=== PATIENT | male | born 1970 | race Caucasian/White ===

== ENCOUNTER 2024-04-15 12:50 | Observation (INO) | payer OTHER ==
--- NOTE | 2024-04-15 13:07 | ED ---
General Adult HPI - General Chief complaint: Chest Pain Stated complaint: Chest pain Time Seen by Provider: 04/15/24 12:50 Source: patient, RN notes reviewed, old records reviewed Mode of arrival: EMS Limitations: no limitations - History of Present Illness Initial comments: This is a 53-year-old male who presents to the emergency department stating he is having some left shoulder pain and it radiates into his back. Patient states she has had this many times before. Patient states he spent 13 hours yesterday digging holes in today it was hurting with deep breath or twisting. Patient states as long as he does not do that he has no pain. Patient states that sharp in nature and only last as long as he is twisting or taking a deep breath. Patient states he went to [facility] to going to rehabilitation for alcohol abuse and they sentiment because he mentioned he had shoulder pain. Patient denies any diabetes patient states he has had slightly high cholesterol in the past and slightly high blood pressure in the past. Patient currently denies any symptoms. - Related Data Home Medications Medication Instructions Recorded Confirmed Multivitamins, Thera [Multivitamin 1 tab PO DAILY 04/15/24 04/15/24 (formulary)] Nugenix 1 tab PO BID 04/15/24 04/15/24 Allergies Allergy/AdvReac Type Severity Reaction Status Date / Time No Known Allergies Allergy Verified 04/15/24 14:35 Review of Systems ROS Statement: Those systems with pertinent positive or pertinent negative responses have been documented in the HPI. ROS Other: All systems not noted in ROS Statement are negative. Past Medical History Past Medical History: No Reported History History of Any Multi-Drug Resistant Organisms: None Reported Past Surgical History: Orthopedic Surgery Past Psychological History: No Psychological Hx Reported Smoking Status: Never smoker Past Alcohol Use History: Abuse, Daily, Heavy General Exam - General Exam Comments Initial Comments: GENERAL: Patient is well-developed and well-nourished. Patient is nontoxic and well- hydrated and is in no acute distress. ENT: Neck is soft and supple. No significant lymphadenopathy is noted. Oropharynx is clear. Moist mucous membranes. Neck has full range of motion without eliciting any pain. EYES: The sclera were anicteric and conjunctiva were pink and moist. Extraocular movements were intact and pupils were equal round and reactive to light. Eyelids were unremarkable. PULMONARY: Unlabored respirations. Good breath sounds bilaterally. No audible rales rhonchi or wheezing was noted. CARDIOVASCULAR: There is a regular rate and rhythm without any murmurs gallops or rubs. Left shoulder pain posteriorly is tender and reproducible ABDOMEN: Soft and nontender with normal bowel sounds. SKIN: Skin is clear with no lesions or rashes and otherwise unremarkable. NEUROLOGIC: Patient is alert and oriented x3. Cranial nerves II through XII are grossly intact. Motor and sensory are also intact. Normal speech, volume and content. Symmetrical smile. MUSCULOSKELETAL: Normal extremities with adequate strength and full range of motion. No lower extremity swelling or edema. No calf tenderness. LYMPHATICS: No significant lymphadenopathy is noted PSYCHIATRIC: Unable to assess Limitations: no limitations Course Vital Signs 04/15/24 04/15/24 12:55 14:05 Temperature 98.1 F Pulse Rate 89 Respiratory 16 Rate Blood Pressure 158/112 170/117 O2 Sat by Pulse 99 Oximetry Medical Decision Making - Medical Decision Making EKG is interpreted by myself but EKG shows sinus rhythm 89 bpm OH 125 QRS 103 QT interval 378 QTc is 425. Patient's EKG shows no ST segment elevation or depression. Was pt. sent in by a medical professional or institution (, PA, THREAD PULLING MACHINE ATTENDANT, urgent care, hospital, or [facility]...) When possible be specific @ -No Did you speak to anyone other than the patient for history (EMS, parent, family, police, friend...)? What history was obtained from this source @ -No Did you review nursing and triage notes (agree or disagree)? Why? @ -I reviewed and agree with nursing and triage notes Were old charts reviewed (outside hosp., previous admission, EMS record, old EKG, old radiological studies, urgent care reports/EKG's, m[facility] records)? Report findings @ -No old charts were reviewed Differential Diagnosis? @ -Differential Chest Pain: Stable Angina, Unstable Angina, STEMI, NSTEMI Aortic Dissection, Pneumothorax, Musculoskeletal, Esophageal Spasm GERD, Cholecystitis, Pancreatitis, Zoster, this is not meant to be an all-inclusive list. EKG interpreted by me (3pts min.). @ -As above X-rays interpreted by me (1pt min.). @ -Chest x-ray shows no acute CT interpreted by me (1pt min.). @ -None done U/S interpreted by me (1pt. min.). @ -None done What testing was considered but not performed or refused? (CT, X-rays, U/S, lab s)? Why? @ -None What meds were considered but not given or refused? Why? @ -None Did you discuss the management of the patient with other professionals (professionals i.e. , PA, THREAD PULLING MACHINE ATTENDANT, lab, RT, psych nurse, social media job titles, dressage judge, teacher, chief digital officer, medical case worker)? Give summary @ -I spoke with [facility] hospitalist and they agreed to admit the patient admit the patient I wrote admitting orders Was smoking cessation discussed for >3mins.? @ -No Was critical care preformed (if so, how long)? @ -No Were there social determinants of health that impacted care today? How? (Homelessness, low income, unemployed, alcoholism, drug addiction, transportation, low edu. Level, literacy, decrease access to med. care, usp, rehab)? @ -No Was there de-escalation of care discussed even if they declined (Discuss DNR or withdrawal of care, Hospice)? DNR status @ -No What co-morbidities impacted this encounter? (DM, HTN, Smoking, COPD, CAD, Cancer, CVA, ARF, Chemo, Hep., AIDS, mental health diagnosis, sleep apnea, morbid obesity)? @ -None Was patient admitted / discharged? Hospital course, mention meds given and route, prescriptions, significant lab abnormalities, going to OR and other pert inent info. @ -Patient's troponin was mildly elevated so patient will be kept in the emergency department and troponins will be repeated. Patient will also be put on a CIWA protocol if necessary though he is not having any withdrawal symptoms currently Undiagnosed new problem with uncertain prognosis? @ -No Drug Therapy requiring intensive monitoring for toxicity (Heparin, Nitro, Insulin, Cardizem)? @ -No Were any procedures done? @ -No Diagnosis/symptom? @ -Chest pain Acute, or Chronic, or Acute on Chronic? @ -Acute Uncomplicated (without systemic symptoms) or Complicated (systemic symptoms)? @ -Complicated Side effects of treatment? @ -No Exacerbation, Progression, or Severe Exacerbation? @ -No Poses a threat to life or bodily function? How? (Chest pain, USA, MT, pneumonia, PE, COPD, DKA, ARF, appy, cholecystitis, CVA, Diverticulitis, Homicidal, Suicidal, threat to staff... and all critical care pts) @ -Yes this could lead to an MT and endorgan dysfunction Diagnosis/symptom? @ -Alcohol abuse Acute, or Chronic, or Acute on Chronic? @ -Acute on chronic Uncomplicated (without systemic symptoms) or Complicated (systemic symptoms)? @ -Complicated Side effects of treatment? @ -None Exacerbation, Progression, or Severe Exacerbation] @ -No Poses a threat to life or bodily function? @ -No - Lab Data Result diagrams: 04/15/24 13:13 04/15/24 13:13 Lab Results 04/15/24 04/15/24 04/15/24 Range/Units 13:13 13:13 13:13 WBC 4.4 (3.8-10.6) k/uL RBC 4.34 (4.30-5.90) m/uL Hgb 13.4 (13.0-17.5) gm/dL Hct 40.2 (39.0-53.0) % MCV 92.6 (80.0-100.0) fL MCH 30.8 (25.0-35.0) pg MCHC 33.2 (31.0-37.0) g/dL RDW 12.8 (11.5-15.5) % Plt Count 139 L (150-450) k/uL MPV 7.6 Neutrophils % 71 % Lymphocytes % 16 % Monocytes % 9 % Eosinophils % 1 % Basophils % 0 % Neutrophils # 3.1 (1.3-7.7) k/uL Lymphocytes # 0.7 L (1.0-4.8) k/uL Monocytes # 0.4 (0-1.0) k/uL Eosinophils # 0.0 (0-0.7) k/uL Basophils # 0.0 (0-0.2) k/uL Sodium 136 L (137-145) mmol/L Potassium 3.8 (3.5-5.1) mmol/L Chloride 98 (98-107) mmol/L Carbon Dioxide 27 (22-30) mmol/L Anion Gap 11 mmol/L BUN 18 (9-20) mg/dL Creatinine 0.68 (0.66-1.25) mg/dL Est GFR (CKD-EPI)AfAm >90 (>60 ml/min/1.73 sqM) Est GFR (CKD-EPI)NonAf >90 (>60 ml/min/1.73 sqM) Glucose 141 H (74-99) mg/dL Calcium 9.7 (8.4-10.2) mg/dL Magnesium 1.8 (1.6-2.3) mg/dL Total Bilirubin 1.2 (0.2-1.3) mg/dL AST 199 H (17-59) U/L ALT 192 H (4-49) U/L Alkaline Phosphatase 82 (38-126) U/L Troponin I 0.037 H* (0.000-0.034) ng/mL Total Protein 7.8 (6.3-8.2) g/dL Albumin 4.9 (3.5-5.0) g/dL Disposition Clinical Impression: Chest pain, Alcohol abuse Disposition: ADMITTED IP TO THIS [facility] Referrals: None,Stated [Primary Care Provider] - 1-2 days Time of Disposition: 14:53
[2024-04-15] MEDS: KETOROLAC 15 MG/ML 1 ML VIAL IVP STA (13:24)
[2024-04-15 13:43] LABS: ALT 192 U/L (4-49); AST 199 U/L (17-59); African American GFR (CKD) >90 (>60 ml/min/1.73 sqM); Albumin 4.9 g/dL (3.5-5.0); Alkaline Phosphatase 82 U/L (38-126); Anion Gap 11 mmol/L; Blood Urea Nitrogen 18 mg/dL (9-20); Calcium 9.7 mg/dL (8.4-10.2); Carbon Dioxide 27 mmol/L (22-30); Chloride 98 mmol/L (98-107); Glucose 141 mg/dL (74-99); Magnesium 1.8 mg/dL (1.6-2.3); Non-African American GFR(CKD) >90 (>60 ml/min/1.73 sqM); Potassium 3.8 mmol/L (3.5-5.1); Sodium 136 mmol/L (137-145); Total Bilirubin 1.2 mg/dL (0.2-1.3); Total Protein 7.8 g/dL (6.3-8.2)
--- NOTE | 2024-04-15 13:56 | XR ---
EXAMINATION TYPE: XR chest 2V DATE OF EXAM: 04/15/2024 1:36 PM COMPARISON: Chest radiographs from CLINICAL INDICATION: Male, 53 years old with history of Difficulty breathing ; [facility] TECHNIQUE: XR chest 2V Frontal and lateral views of the chest. FINDINGS: Lungs/Pleura: There is flattening of the diaphragm with increased lucency of the lungs. No evidence o f pneumothorax, pleural effusion or focal consolidation. Pulmonary vascularity: Unremarkable. Heart/mediastinum: Cardiomediastinal silhouette is unremarkable. Musculoskeletal: No acute osseous pathology. Other findings: None IMPRESSION: No acute cardiopulmonary disease/process. [facility], , 04/15/2024 1:54 PM
[2024-04-15 13:58] LABS: Basophils % (A) 0 %; Eosinophils % (A) 1 %; HCT 40.2 % (39.0-53.0); HGB 13.4 gm/dL (13.0-17.5); Lymphocytes # (A) 0.7 k/uL (1.0-4.8); Lymphocytes % (A) 16 %; MCH 30.8 pg (25.0-35.0); MCHC 33.2 g/dL (31.0-37.0); MCV 92.6 fL (80.0-100.0); Mean Platelet Volume 7.6; Monocytes # (A) 0.4 k/uL (0-1.0); Monocytes % (A) 9 %; Neutrophils # (A) 3.1 k/uL (1.3-7.7); Neutrophils % (A) 71 %; Platelet Count 139 k/uL (150-450); RBC 4.34 m/uL (4.30-5.90); RDW 12.8 % (11.5-15.5); WBC 4.4 k/uL (3.8-10.6)
[2024-04-15] MEDS: hydrALAZINE HCL 20 MG/ML 1 ML VIAL IVP STA (14:33)
[2024-04-15] MEDS: ASPIRIN 81 MG PO STA (14:33)
[2024-04-15] MEDS: NITROGLYCERIN OINT 1 INCH/GM PACKET TOPICAL STA (14:33)
[2024-04-15] MEDS ORDERED: NITROGLYCERIN SL TABS 0.4 MG TAB SUBLINGUAL PRN (15:00)
[2024-04-15] MEDS ORDERED: LORazepam 1 MG TAB PO PRN ×3 (15:05)
[2024-04-15] MEDS ORDERED: LORazepam 0.5 MG TAB PO PRN (15:05)
[2024-04-15] MEDS: NITROGLYCERIN OINT 1 INCH/GM PACKET TOPICAL SCH (17:01)
[2024-04-16] MEDS: ASPIRIN 325 MG TAB PO SCH (08:37)
[2024-04-16 08:50] LABS: Chol/HDL Ratio 3.13 Ratio; LDL Cholesterol,Calculated 117.9 mg/dL (0.0-131.0)
--- NOTE | 2024-04-16 09:34 | US ---
EXAMINATION TYPE: US liver DATE OF EXAM: 04/16/2024 COMPARISON: NONE CLINICAL INDICATION: Male, 53 years old with history of Transaminitis; Elevated liver enzymes. TECHNIQUE: Grayscale and color Doppler imaging of the right upper quadrant was performed. FINDINGS: EXAM MEASUREMENTS: Liver Length: 17.3 cm Gallbladder Wall: .1 cm CBD: .4 cm Right Kidney: 10.6 x 4.2 x 4.2 cm MARKETER NOTES: Pancreas: Tail obscured by overlying bowel gas Liver: Increased attenuation no dilated ducts cysts or masses. Gallbladder: No stones seen Evidence for sonographic Bautista's sign: No CBD: wnl Right Kidney: No hydronephrosis or masses seen IMPRESSION: 1. No evidence for acute process. 2. Hepatic steatosis. [facility], , 04/16/2024 9:32 AM
[2024-04-16 09:59] LABS: ALT 182 U/L (4-49); AST 168 U/L (17-59); African American GFR (CKD) >90 (>60 ml/min/1.73 sqM); Albumin 4.7 g/dL (3.5-5.0); Alkaline Phosphatase 76 U/L (38-126); Amylase 34 U/L (30-110); Anion Gap 11 mmol/L; Blood Urea Nitrogen 14 mg/dL (9-20); Calcium 9.7 mg/dL (8.4-10.2); Carbon Dioxide 26 mmol/L (22-30); Chloride 99 mmol/L (98-107); Glucose 129 mg/dL (74-99); Lipase 142 U/L (23-300); Non-African American GFR(CKD) >90 (>60 ml/min/1.73 sqM); Sodium 136 mmol/L (137-145); Total Bilirubin 1.4 mg/dL (0.2-1.3); Total Protein 7.6 g/dL (6.3-8.2)
--- NOTE | 2024-04-16 10:14 | CT ---
EXAMINATION TYPE: CT cervical spine wo con DATE OF EXAM: 04/16/2024 COMPARISON: NONE CLINICAL INDICATION: Male, 53 years old with history of Numbness and tingling in Right UE, , pain TECHNIQUE: CT scan of the cervical spine is obtained without contrast, axial images are obtained, sa gittal and coronal reformatted images are also reviewed. CT DLP: 507 mGycm. Automated Exposure Control for Dose Reduction was Utilized. Contrast: , patient injected with mL of ., (none if empty) FINDINGS: Cervical spine is visualized in its entirety from C1 through upper thoracic levels, demonst rates levoconvex scoliosis centered in the upper thoracic spine. Prevertebral soft tissue appears wi thin normal limits. The C1-C2 articulation is within normal limits on the coronal images. Vertebral body heights and disc space heights are preserved. Review of axial images shows C2-C3 level to appear within normal limits. Axial images at C3-C4 level show left-sided foraminal bony projection causing asymmetric moderate to severe left-sided neural foraminal narrowing. Axial images at C4-C5 levels uncovertebral facet degenerative changes bilaterally and right paracentr al spur disc complex with asymmetric mild to moderate right-sided neural foraminal narrowing seen. Axial images at C5-C6 level show posterior spur disc complex more prominent to the right suspected mo derate to severe right-sided neural foraminal narrowing. This can be better evaluated or confirmed wi th MRI. Axial images at C6-C7 levels with posterior spur disc complex effacing the anterior thecal sac and ca using moderate bilateral neural foraminal narrowing. Axial images at C7-T1 level appear within normal limits. Thyroid gland is unremarkable. Lung apices show some mild parenchymal scarring without pneumothorax. IMPRESSION: There is no acute findings in the cervical spine. MRI noted more sensitive to evaluate f or suspected bilateral multilevel neural foraminal narrowing. [facility], , 04/16/2024 10:12 AM
[2024-04-16] MEDS ORDERED: DEXTROSE 50% SYRINGE 50 ML IVP PRN ×2 (10:44)
--- NOTE | 2024-04-16 10:46 | P.HPIM ---
History of Present Illness H&P Date: 04/16/24 Patient is a 53-year-old male with history of hypertension, alcohol dependence and osteoarthritis presented to the ER with complaint of left sided chest tightness that started yesterday at [facility]. Patient reports that he is currently undergoing detox rehab at [facility] since yesterday on 04/15/2024. He felt some bandlike pain and tightness in the left side of his chest yesterday radiating across. He reports that he has experienced similar pain in the past and which now happens almost on a monthly basis. Patient denies any history of CAD and has undergone EKG stress test 2 years ago which was normal. At the time interview, patient reports no chest pain or eva rtness of breath. Patient also reports that he has been under a lot of stress because of work and life. Patient has significant history of alcohol use. He has been drinking alcohol for more than 15 years on a regular basis between 3-6 shots of hard liquor every day. His last drink was on Monday evening on 04/14/2024. Patient denies tremors, nausea, vomiting, auditory, visual, tactile hallucination. He is also reporting chronic left shoulder pain with radiation to his left upper extremity. He has been experiencing tingling and numbness which has been getting progressively worse for more than a year. 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 Patient denies having any imaging done in the past. Reports no weakness. Patient denies any recent travel, hospitalization, history of blood clots. Initial laboratory evaluation show WBC 4.4, hemoglobin 13.4, MCV 92.6, platelet count 139, sodium 136, potassium 3.8, BUN 18, creatinine 0.68, glucose 141, AST 129, ALT 192, troponin one 0.037 (subsequently 0.031 and 0.034) Chest x-ray shows no acute cardiopulmonary disease or process. EKG shows normal sinus rhythm. With ventricular rate of 89 bpm, MT interval 125, QRS duration 103, QTc 425 ms. Poor R wave progression noted. Liver ultrasound is shows hepatic steatosis. CT of the cervical spine shows multilevel degenerative changes with bilateral multilevel neuroforaminal narrowing. Vital signs on arrival are temperature 98.1 F, pulse rate 89, respiratory 16, blood pressure 158/112, oxygen saturation 99% on room air Review of systems: Pertinent positives and negatives as discussed in HPI, a complete review of systems was performed and all other systems are negative. Social history: As above in HPI Physical examination: Vital signs reviewed General: non toxic, no distress, appears at stated age, overweight Derm: no unusual rashes/lesions, warm Head: atraumatic, normocephalic, symmetric Eyes: EOMI, no lid lag, anicteric sclera, pupils equal round reactive to light ENT: Nose and ears atraumatic Neck: No cervical lymphadenopathy, trachea midline, supple Mouth: no lip lesion, mucus membranes moist Cardiovascular: S1S2 reg, no murmur, positive dorsalis pedis pulse bilateral, no edema, left-sided chest tenderness upon palpation Lungs: CTA bilateral, no rhonchi, no rales, no accessory muscle use Abdominal: soft, nontender to palpation, no guarding Ext: muscle strength 5 out of 5 in all 4 extremities grossly, no gross muscle atrophy, no contractures, Neuro: CN II-XI grossly intact, no gross focal neuro deficits Psych: Alert, oriented, appropriate affect Assessment/Plan: This is a Patient is a 53-year-old male with history of hypertension, alcohol dependence and osteoarthritis presented to the ER with complaint of tightness left side of the chest. Case was discussed with the Emergency Room provider and decision was made to admit the patient for atypical chest pain, rule out ACS. Labs and images: Initial laboratory evaluation show WBC 4.4, hemoglobin 13.4, MCV 92.6, platelet count 139, sodium 136, potassium 3.8, BUN 18, creatinine 0.68, glucose 141, AST 129, ALT 192, troponin one 0.037 (subsequently 0.031 and 0.034) Chest x-ray shows no acute cardiopulmonary disease or process. EKG shows normal sinus rhythm. With ventricular rate of 89 bpm, MT interval 125, QRS duration 103, QTc 425 ms. Poor R wave progression noted. Liver ultrasound shows hepatic steatosis. CT of the cervical spine shows multilevel degenerative changes with bilateral multilevel neuroforaminal narrowing. Active problems: #Atypical chest pain, rule out ACS #Cardiomyopathy suspected in the setting of alcohol use disorder #Musculoskeletal pain Heart score is 2 points which indicate low risk with risk of MACE of 0.9 to 1.7% Oxygen therapy as needed Received aspirin 325 mg the ED Start aspirin 81 mg p.o. daily Nitroglycerin ointment topical 6 every hour and Nitrostat 0.4 mg sublingual every 5 minutes as needed Continue cardiac telemetry Consult cardiology; appreciate recs Echocardiogram and stress echo Order amylase and lipase to rule out pancreatitis Order lipid panel #Alcohol use disorder with impending withdrawal #Transaminitis Continue with [facility] protocol Order seizure precautions Order Librium 10 mg p.o. 3 times daily; consider uptitrating as needed Continue monitor for withdrawal symptoms Order liver ultrasound results discussed above Continue with detox rehab at [facility] after discharge Counseling provided on alcohol cessation Order UDS #Left upper extremity paresthesias Ordered CT of the cervical spine with results discussed above Outpatient follow-up with orthopedic and physical therapy #Hyperglycemia Accu-Cheks and sliding scale insulin Check HbA1c #Hypertension Start lisinopril 10 mg p.o. daily DVT prophylaxis: Lovenox 40 mg subcu daily GI prophylaxis: None F: None E: Replete as needed N: Heart healthy diet A: Patient ambulatory at baseline The patient is admitted with an anticipated less than than 2 midnight stay for evaluation of atypical chest pain, rule out ACS CODE STATUS: Full code Discussed with: Patient Anticipated discharge place: [facility] center Dictation was produced using [employer] dictation software. Please excuse any grammatical, word or spelling errors. Attestation I have seen and examined this patient with my resident , discussed the same with the resident/CHESTER, and agree with the dictator's assessment and plan as written GENERAL: The patient is alert and oriented x3, not in any acute distress. Well developed, well nourished. HEENT: Pupils are round and equally reacting to light. EOMI. No scleral icterus. No conjunctival pallor. Normocephalic, atraumatic. No pharyngeal erythema. No thyromegaly. CARDIOVASCULAR: S1 and S2 present. No murmurs, rubs, or gallops. PULMONARY: Chest is clear to auscultation, no wheezing or crackles. ABDOMEN: Soft, nontender, nondistended, normoactive bowel sounds. No palpable organomegaly. MUSCULOSKELETAL: No joint swelling or deformity. EXTREMITIES: No cyanosis, clubbing, or pedal edema. NEUROLOGICAL: Gross neurological examination did not reveal any focal deficits. SKIN: No rashes. Dr. Gerry finnegan Past Medical History Past Medical History: No Reported History History of Any Multi-Drug Resistant Organisms: None Reported Past Surgical History: Orthopedic Surgery Past Psychological History: No Psychological Hx Reported Smoking Status: Never smoker Past Alcohol Use History: Abuse, Daily, Heavy - Past Family History Mother Family Medical History: Diabetes Mellitus Sister(s) Family Medical History: Diabetes Mellitus Medications and Allergies Home Medications Medication Instructions Recorded Confirmed Type Multivitamins, Thera [Multivitamin 1 tab PO DAILY 04/15/24 04/15/24 History (formulary)] Nugenix 1 tab PO BID 04/15/24 04/15/24 History Allergies Allergy/AdvReac Type Severity Reaction Status Date / Time No Known Allergies Allergy Verified 04/15/24 14:35 Physical Exam Vitals: Vital Signs Temp Pulse Pulse Resp BP BP Pulse Ox 04/16/24 06:39 98.4 F 79 20 144/99 98 04/15/24 20:00 98.0 F 90 16 115/82 98 04/15/24 18:04 98 F 101 H 16 153/99 97 04/15/24 15:42 80 152/105 04/15/24 14:57 94 18 162/100 04/15/24 14:05 170/117 04/15/24 12:55 98.1 F 89 16 158/112 99 Results CBC & Chem 7: 04/15/24 13:13 04/17/24 06:04 Labs: Abnormal Lab Results - Last 24 Hours (Table) 04/15/24 04/15/24 04/15/24 Range/Units 13:13 13:13 13:13 Plt Count 139 L (150-450) k/uL Lymphocytes # 0.7 L (1.0-4.8) k/uL Sodium 136 L (137-145) mmol/L Glucose 141 H (74-99) mg/dL Total Bilirubin (0.2-1.3) mg/dL AST 199 H (17-59) U/L ALT 192 H (4-49) U/L Troponin I 0.037 H* (0.000-0.034) ng/mL HDL Cholesterol (40.00-60.00) mg/dL 04/15/24 04/16/24 Range/Units 13:13 09:22 Plt Count (150-450) k/uL Lymphocytes # (1.0-4.8) k/uL Sodium 136 L (137-145) mmol/L Glucose 129 H (74-99) mg/dL Total Bilirubin 1.4 H (0.2-1.3) mg/dL AST 168 H (17-59) U/L ALT 182 H (4-49) U/L Troponin I (0.000-0.034) ng/mL HDL Cholesterol 63.00 H (40.00-60.00) mg/dL
--- NOTE | 2024-04-16 11:02 | P.CRDCN ---
History of Present Illness Consult date: 04/16/24 Consult reason: chest pain History of present illness: This is a 53-year-old male with no previous cardiac history and does not follow with a chief embalmer. He has a past medical history of alcohol abuse and last alcohol intake was on Monday which consisted of 2-3 shots. He states he went to [place] to be admitted for rehab but was told he needed to get clearance because he was having chest pain. 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 He states is okay now but he still has some neck and back discomfort. He has had a stress test around age 27 and again at age 52 which she reports is normal. 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 He does have a history of drug use in his 30s but quit because of frequent mcc time. Discussed results of the testing with the patient and at this time he declines moving forward with a cardiac catheterization but is agreeable for stress test. Blood pressure 144/99, heart rate 79, pulse ox 98% on room air. Patient is seen today in the emergency center waiting for a bed on the cardiac stepdown unit. -EKG: Sinus rhythm with no acute ST-T wave changes. -Chest x-ray: No acute findings. -CT neck: No acute findings. -Laboratory studies: Platelet count is 139 otherwise CBC is unremarkable. Sodium 136, potassium 4, BUN 14 creatinine 0.72. Liver function tests are elevated with total bilirubin 1.4, AST 168 and ALT 182. Troponin 0.037, 0.031 and 0.034. Triglycerides 80, cholesterol 197, LDL 117, HDL 63. -Home cardiac medications: None. Review Of Systems: At the time of my exam: CONSTITUTIONAL: Denies fever or chills. HEENT: Denies blurred vision, vision changes, or eye pain. Denies hemoptysis CARDIOVASCULAR: Denies chest pain. Denies orthopnea. Denies PND. Denies palpitations RESPIRATORY: Denies shortness of breath. GASTROINTESTINAL: Denies abdominal pain. Denies nausea or vomiting. HEMATOLOGIC: Denies bleeding disorders. GENITOURINARY: Denies any blood in urine. SKIN: Denies puritis. Denies rash. Physical examination: Gen: This is a 53-year-old male in no acute distress VS: reviewed HEENT: Head is atraumatic, normocephalic. Pupils equal, round. Sclerae is anicteric. NECK: Supple. No JVD. LUNGS: Clear to auscultation. No wheezes or rhonchi. No intercostal retractions. HEART: Regular rate and rhythm. No murmur. ABDOMEN: Soft No tenderness. EXTREMITIES: No pedal edema. No calf tenderness. NEUROLOGICAL: Patient is awake, alert and oriented x3. Assessment: Elevated troponin of unclear clinical significance with flat pattern Hypertension Alcohol abuse Plan: Discontinue Nitropaste Continue lisinopril 10 mg daily Obtain stress echocardiogram today Obtain 2-D echocardiogram and Doppler study to assess cardiac structure and function If testing is unremarkable, patient is cleared for discharge and may have returned to [place]. Thank you kindly for this consultation. Nurse practitioner note has been reviewed, I agree with documented findings and plan of care. Patient was seen and examined. Past Medical History Past Medical History: No Reported History History of Any Multi-Drug Resistant Organisms: None Reported Past Surgical History: Orthopedic Surgery Past Psychological History: No Psychological Hx Reported Smoking Status: Never smoker Past Alcohol Use History: Abuse, Daily, Heavy Medications and Allergies Home Medications Medication Instructions Recorded Confirmed Type Multivitamins, Thera [Multivitamin 1 tab PO DAILY 04/15/24 04/15/24 History (formulary)] Nugenix 1 tab PO BID 04/15/24 04/15/24 History Allergies Allergy/AdvReac Type Severity Reaction Status Date / Time No Known Allergies Allergy Verified 04/15/24 14:35 Physical Exam Vitals: Vital Signs Temp Pulse Pulse Resp BP BP Pulse Ox 04/16/24 06:39 98.4 F 79 20 144/99 98 04/15/24 20:00 98.0 F 90 16 115/82 98 04/15/24 18:04 98 F 101 H 16 153/99 97 04/15/24 15:42 80 152/105 04/15/24 14:57 94 18 162/100 04/15/24 14:05 170/117 04/15/24 12:55 98.1 F 89 16 158/112 99 Results 04/15/24 13:13 04/16/24 09:22 Cardiac Enzymes 04/15/24 04/15/24 04/15/24 Range/Units 13:13 13:13 16:25 AST 199 H (17-59) U/L Troponin I 0.037 H* 0.031 (0.000-0.034) ng/mL 04/15/24 Range/Units 20:41 AST (17-59) U/L Troponin I 0.034 (0.000-0.034) ng/mL CBC 04/15/24 Range/Units 13:13 WBC 4.4 (3.8-10.6) k/uL RBC 4.34 (4.30-5.90) m/uL Hgb 13.4 (13.0-17.5) gm/dL Hct 40.2 (39.0-53.0) % Plt Count 139 L (150-450) k/uL Comprehensive Metabolic Panel 04/15/24 Range/Units 13:13 Sodium 136 L (137-145) mmol/L Potassium 3.8 (3.5-5.1) mmol/L Chloride 98 (98-107) mmol/L Carbon Dioxide 27 (22-30) mmol/L BUN 18 (9-20) mg/dL Creatinine 0.68 (0.66-1.25) mg/dL Glucose 141 H (74-99) mg/dL Calcium 9.7 (8.4-10.2) mg/dL AST 199 H (17-59) U/L ALT 192 H (4-49) U/L Alkaline Phosphatase 82 (38-126) U/L Total Protein 7.8 (6.3-8.2) g/dL Albumin 4.9 (3.5-5.0) g/dL Current Medications Generic Name Dose Route Start Last Admin Trade Name Freq PRN Reason Stop Dose Admin Aspirin 325 mg 04/16/24 09:00 Aspirin 325 Mg Tab PO DAILY JASMIN Lorazepam 0.5 mg 04/15/24 15:05 Lorazepam 0.5 Mg Tab PO Q4HR PRN Ciwa 4 To 5 Lorazepam 1 mg 04/15/24 15:05 Lorazepam 1 Mg Tab PO Q4HR PRN Ciwa 6 To 7 Lorazepam 2 mg 04/15/24 15:05 Lorazepam 1 Mg Tab PO Q2HR PRN Ciwa 10 or greater Lorazepam 2 mg 04/15/24 15:05 Lorazepam 1 Mg Tab PO Q3HR PRN Ciwa 8 To 9 Nitroglycerin 0.4 mg 04/15/24 15:00 Nitroglycerin Sl Tabs 0.4 Mg Tab SUBLINGUAL Q5M PRN Chest Pain Nitroglycerin 1 inch 04/15/24 18:00 04/16/24 06:40 Nitroglycerin Oint 1 Inch/Gm Packet TOPICAL Not Given Q6HR JASMIN 04/15/24 13:13 04/15/24 13:13
[2024-04-16 13:13] LABS: Glucose,Whole Blood 124 mg/dL (70-110)
[2024-04-16] MEDS: INSULIN LISPRO (HumaLOG) 100 UNIT/ML 10 mL VL SQ SCH (13:17)
[2024-04-16] MEDS: lisinopriL 10 MG TAB PO SCH (14:50)
--- NOTE | 2024-04-16 14:56 | CA ---
Transthoracic Echo Report Name: Bismark Croft Age: 53 Gender: M : 1970 Exam Date: 04/16/2024 12:37 Exam Location: [facility] Ht (in): 67 Wt (lb): 170 Ordering Physician: Bere Hill Attending/Referring Phys: [id number], Liz Azure Architect Oanh Chavez RDCS Procedure CPT: Indications: LVF Cardiac Hx: Technical Quality: Good Contrast 1: Total Dose (mL): Contrast 2: Total Dose (mL): MEASUREMENTS (Male / Female) Normal Values 2D ECHO LV Diastolic Diameter PLAX 4.6 cm 4.2 - 5.9 / 3.9 - 5.3 cm LV Systolic Diameter PLAX 3.8 cm IVS Diastolic Thickness 1.3 cm 0.6 - 1.0 / 0.6 - 0.9 cm LVPW Diastolic Thickness 1.2 cm 0.6 - 1.0 / 0.6 - 0.9 cm LV Relative Wall Thickness 0.5 RV Internal Dim ED PLAX 2.5 cm LA Systolic Diameter LX 3.6 cm 3.0 - 4.0 / 2.7 - 3.8 cm LV Diastolic Volume MOD BP 105.0 cm??? 67 - 155 / 56 - 104 cm??? LV Systolic Volume MOD BP 52.0 cm??? 22 - 58 / 19 - 49 cm??? LV Ejection Fraction MOD BP 50.4 % >= 55 % LV Cardiac Index MOD BP 2256.1 cm???/min???m??? LV Diastolic Volume MOD 4C 117.8 cm??? LV Systolic Volume MOD 4C 49.7 cm??? LV Ejection Fraction MOD 4C 57.8 % LV Cardiac Index MOD 4C 2903.5 cm???/min???m??? LV Diastolic Length 4C 8.4 cm LV Systolic Length 4C 7.0 cm LV Diastolic Volume MOD 2C 78.7 cm??? LV Systolic Volume MOD 2C 53.5 cm??? LV Ejection Fraction MOD 2C 32.1 % LV Cardiac Index MOD 2C 1075.8 cm???/min???m??? LV Diastolic Length 2C 7.1 cm LV Systolic Length 2C 6.8 cm M-MODE Aortic Root Diameter MM 3.1 cm LA Systolic Diameter MM 2.9 cm LA Ao Ratio MM 0.9 AV Cusp Separation MM 1.9 cm DOPPLER Mitral E Point Velocity 61.8 cm/s Mitral A Point Velocity 78.2 cm/s Mitral E to A Ratio 0.8 MV Deceleration Time 294.7 ms MV E' Velocity 4.3 cm/s Mitral E to MV E' Ratio 14.4 TR Peak Velocity 214.9 cm/s TR Peak Gradient 18.5 mmHg Right Ventricular Systolic Press 28.5 mmHg FINDINGS Left Ventricle Left ventricular ejection fraction is estimated at 40-45 %. Mildly increased septal wall thickness. Mildly decreased left ventricular ejection fraction. Hypokinetic inferior wall. Left ventricular cavity size normal. Right Ventricle Normal right ventricular size and function. Right ventricular systolic pressure within normal limits. Right Atrium Normal right atrial size. Left Atrium Normal left atrial size. Mitral Valve Structurally normal mitral valve. Trace to mild mitral regurgitation. No mitral stenosis. Aortic Valve Trileaflet aortic valve. No aortic valve stenosis or regurgitation. Tricuspid Valve Structurally normal tricuspid valve. Trace to mild tricuspid regurgitation. No tricuspid stenosis. Pulmonic Valve Structurally normal pulmonic valve. Trace pulmonic regurgitation. No pulmonic stenosis. Pericardium No pericardial or pleural effusion. Aorta Normal size aortic root and proximal ascending aorta. CONCLUSIONS Left ventricular ejection fraction 40-45% Basal inferior wall hypokinetic RVSP 28 Trace to mild mitral regurgitation No pericardial effusion Previewed by: Dr. Jordy Banda DO (Electronically Signed) Final Date: 16 April 2024 14:56
--- NOTE | 2024-04-16 15:10 | CA ---
Stress Echo Report Bismark Croft Age: 53 Gender: M : 1970 Exam Date: 04/16/2024 12:14 Exam Location: [facility] Ht (in): 66 Wt (lb): 170 Ordering Physician: Bere Hill Referring Physician: [id number] Learning Coordinator: FLORENCIA AUGUSTIN Technologist Procedure CPT: Indication: Chest Pain ICD-9 Codes: Rhythm: Patient History: Cardiac Medications: SEE CHART,,,,, Medications in past 24 hours: Contrast: N/A Stress Results Protocol: Archie Total dose(mL): NA Exercise Duration (min:sec): 9:[address] Depression (mm): Angina Score: Denise Score: METS: 10.5 Resting HR: 81 Resting BP: 155 / 94 Peak HR: 151 Peak BP: 199 / 85 Max Predicted HR: 169 89 % Max Predicted HR Target HR: 144 Double Product: [id number] Stress Summary: BP Response: Reason for Termination: MAX EXERTION/TARGET HR Cardiac Symptoms: NO SYMPTOMS ECG Analysis Resting ECG: Stress ECG: Arrhythmia: Echo Analysis Resting Echo: Peak Echo Analysis: MEASUREMENTS (Male/Female) Normal Values CONCLUSIONS Patient underwent exercise stress echo with a Archie protocol treadmill stress test. Patient exercised into Stage 3 for a total of 9 minutes reaching a total of 10.5 METS. Patient's maximum heart rate was 151 which represented 89% age-predicted maximum heart rate. Stress EKG portion: At baseline patient's EKG showed normal sinus rhythm, normal axis, no significant ST or T wave abnormalities. At peak exercise, EKG showed no change from baseline. Stress echo portion: 2-D echocardiogram was performed in the parasternal long, personal short, apical 2 and apical four-chamber views at rest, peak exercise and in recovery. At baseline, echocardiogram showed left ventricular ejection fraction 45-50% without wall motion abnormalities. With peak exercise, echocardiogram shows improvement in left ventricular ejection fraction, increase contractility, decrease in left ventricular end systolic dimension without wall motion abnormalities consistent with a normal response to exercise. Conclusions: 1. Normal EKG and echo response to exercise without evidence of inducible ischemia. 2. Good exercise capacity. 3. Low normal LV EF 45-50% Dr. Jordy Banda DO (Electronically Signed) Final Date: 16 April 2024 15:09
[2024-04-16 17:12] LABS: Glucose,Whole Blood 107 mg/dL (70-110)
[2024-04-16 19:07] LABS: Urine Alcohol Negative (Negative)
[2024-04-16 19:08] LABS: Urine Barbiturate Negative (Negative); Urine Cocaine Negative (Negative); Urine Methadone Negative (Negative); Urine Opiates Negative (Negative); Urine Phencyclidine Negative (Negative)
[2024-04-16 20:28] LABS: Glucose,Whole Blood 99 mg/dL (70-110)
[2024-04-17 06:00] LABS: Glucose,Whole Blood 122 mg/dL (70-110)
[2024-04-17 06:56] LABS: ALT 178 U/L (4-49); AST 161 U/L (17-59); African American GFR (CKD) >90 (>60 ml/min/1.73 sqM); Albumin 4.8 g/dL (3.5-5.0); Alkaline Phosphatase 70 U/L (38-126); Anion Gap 10 mmol/L; Blood Urea Nitrogen 12 mg/dL (9-20); Calcium 9.6 mg/dL (8.4-10.2); Carbon Dioxide 28 mmol/L (22-30); Chloride 100 mmol/L (98-107); Glucose 113 mg/dL (74-99); Non-African American GFR(CKD) >90 (>60 ml/min/1.73 sqM); Potassium 3.9 mmol/L (3.5-5.1); Sodium 138 mmol/L (137-145); Total Bilirubin 1.3 mg/dL (0.2-1.3); Total Protein 7.7 g/dL (6.3-8.2)
[2024-04-17] MEDS: lisinopriL 10 MG TAB PO SCH (09:55)
[2024-04-17] MEDS: ASPIRIN 81 MG PO SCH (09:55)
[2024-04-17 11:29] LABS: Glucose,Whole Blood 112 mg/dL (70-110)
[2024-04-17 13:05] VITALS: BP 153/96; PULSE 67; RESP 18; TEMP 98.2
--- NOTE | 2024-04-17 13:26 | P.PN ---
Subjective Progress Note Date: 04/17/24 Consult reason: chest pain History of present illness: This is a 53-year-old male with no previous cardiac history and does not follow with a outdoor pursuits instructor. He has a past medical history of alcohol abuse and last alcohol intake was on Monday which consisted of 2-3 shots. He states he went to [place] to be admitted for rehab but was told he needed to get clearance because he was having chest pain. 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 He states is okay now but he still has some neck and back discomfort. He has had a stress test around age 27 and again at age 52 which she reports is normal. 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 He does have a history of drug use in his 30s but quit because of frequent fci time. Discussed results of the testing with the patient and at this time he declines moving forward with a cardiac catheterization but is agreeable for stress test. Blood pressure 144/99, heart rate 79, pulse ox 98% on room air. Patient is seen today in the emergency center waiting for a bed on the cardiac stepdown unit. -EKG: Sinus rhythm with no acute ST-T wave changes. -Chest x-ray: No acute findings. -CT neck: No acute findings. -Laboratory studies: Platelet count is 139 otherwise CBC is unremarkable. Sodium 136, potassium 4, BUN 14 creatinine 0.72. Liver function tests are elevated with total bilirubin 1.4, AST 168 and ALT 182. Troponin 0.037, 0.031 and 0.034. Triglycerides 80, cholesterol 197, LDL 117, HDL 63. -Home cardiac medications: None. 04/17 Patient seen and examined. Yesterday he underwent stress echocardiogram which revealed normal EKG and echo response to exercise without evidence of inducible ischemia. Good exercise capacity. Low normal EF of 45 to 50%. Echocardiogram reveals EF of 40 to 45%, basal inferior wall hypokinetic, RVSP 28, trace to mild mitral regurgitation, no pericardial effusion. Results of the testing reviewed with the patient by Dr. Ennis. Patient denies chest pain, no shortness of breath. No lightheadedness or dizziness. Blood pressure 153/96, heart rate 67, pulse ox 98% on room air. Physical examination: Gen: This is a 53-year-old male in no acute distress VS: reviewed HEENT: Head is atraumatic, normocephalic. Pupils equal, round. Sclerae is anicteric. NECK: Supple. No JVD. LUNGS: Clear to auscultation. No wheezes or rhonchi. No intercostal retractions. HEART: Regular rate and rhythm. No murmur. ABDOMEN: Soft No tenderness. EXTREMITIES: No pedal edema. No calf tenderness. NEUROLOGICAL: Patient is awake, alert and oriented x3. Assessment: Elevated troponin of unclear clinical significance with flat pattern Hypertension Alcohol abuse Cardiomyopathy most likely related to alcohol abuse Plan: Continue lisinopril increased to 20 mg daily Patient is cleared for discharge and may have returned to [place]. Patient to follow-up with Dr. Ennis in 2 weeks. Alcohol cessation. Nurse practitioner note has been reviewed, I agree with documented findings and plan of care. Patient was seen and examined. Objective - Vital Signs Vital signs: Vital Signs Temp 98.7 F 04/16/24 20:00 Pulse 79 04/17/24 04:25 Resp 17 04/17/24 04:25 BP 136/88 04/17/24 04:25 Pulse Ox 99 04/17/24 04:25 FiO2 Intake & Output 04/16/24 04/17/24 04/17/24 18:59 06:59 18:59 Intake Total 540 118 Balance 540 118 Weight 77.111 kg 78.1 kg Intake: Oral 540 118 Other: Voiding Method Toilet # Voids 1 1 # Bowel Movements 1 - Labs CBC & Chem 7: 04/15/24 13:13 04/17/24 06:04 Labs: Abnormal Lab Results - Last 24 Hours (Table) 04/15/24 04/16/24 04/16/24 Range/Units 13:13 09:22 13:11 Sodium 136 L (137-145) mmol/L Glucose 129 H (74-99) mg/dL POC Glucose (mg/dL) 124 H (70-110) mg/dL Total Bilirubin 1.4 H (0.2-1.3) mg/dL AST 168 H (17-59) U/L ALT 182 H (4-49) U/L HDL Cholesterol 63.00 H (40.00-60.00) mg/dL U Cannabinoids Screen (Negative) 04/16/24 04/17/24 04/17/24 Range/Units 14:30 05:59 06:04 Sodium (137-145) mmol/L Glucose 113 H (74-99) mg/dL POC Glucose (mg/dL) 122 H (70-110) mg/dL Total Bilirubin (0.2-1.3) mg/dL AST 161 H (17-59) U/L ALT 178 H (4-49) U/L HDL Cholesterol (40.00-60.00) mg/dL U Cannabinoids Screen Positive A (Negative)
--- NOTE | 2024-04-17 15:20 | P.DS ---
Providers Date of admission: 04/15/24 15:01 Attending physician: Gerry Mccray MD Consults: 04/15/24 15:01 Consult Physician Urgent Consulting Provider: [facility] Consult Reason/Comments: Chest pain Do you want consulting provider notified?: Yes Primary care physician: Stated None Hospital Course: Discharge Diagnosis: #Atypical chest pain, ACS rule out #Musculoskeletal pain #Cardiomyopathy likely due to alcohol use disorder #Transaminitis, downtrending #Left upper extremity paresthesias #Hypoglycemia, resolved #Hypertension Hospital Course: Patient is a 53-year-old male with history of hypertension, alcohol dependence and osteoarthritis presented to the ER with complaint of left sided chest tightness that started yesterday at [facility]. Patient reports that he is currently undergoing detox rehab at [facility] since yesterday on 04/15/2024. He felt some bandlike pain and tightness in the left side of his chest yesterday radiating across. He reports that he has experienced similar pain in the past and which now happens almost on a monthly basis. Patient denies any history of CAD and has undergone EKG stress test 2 years ago which was normal. At the time interview, patient reports no chest pain or shortness of breath. Patient also reports that he has been under a lot of stress because of work and life. Patient has significant history of alcohol use. He has been drinking alcohol for more than 15 years on a regular basis between 3-6 shots of hard liquor every day. His last drink was on Monday evening on 04/14/2024. Patient denies tremors, nausea, vomiting, auditory, visual, tactile hallucination. He is also reporting chronic left shoulder pain with radiation to his left upper extremity. He has been experiencing tingling and numbness which has been getting progressively worse for more than a year. 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 Patient denies having any imaging done in the past. Reports no weakness. Patient denies any recent travel, hospitalization, history of blood clots. Initial laboratory evaluation show WBC 4.4, hemoglobin 13.4, MCV 92.6, platelet count 139, sodium 136, potassium 3.8, BUN 18, creatinine 0.68, glucose 141, AST 199, ALT 192, troponin one 0.037 (subsequently 0.031 and 0.034) Chest x-ray shows no acute cardiopulmonary disease or process. EKG shows normal sinus rhythm. With ventricular rate of 89 bpm, WV interval 125, QRS duration 103, QTc 425 ms. Poor R wave progression noted. Liver ultrasound shows hepatic steatosis. CT of the cervical spine shows multilevel degenerative changes with bilateral multilevel neuroforaminal narrowing. Vital signs on arrival are temperature 98.1 F, pulse rate 89, respiratory 16, blood pressure 158/112, oxygen saturation 99% on room air 04/17/2024: Patient seen and examined at the bedside. Cardiology was consulted. Stress echo and echocardiogram was performed. Stress echo negative for ischemia. Echocardiogram shows LVEF 40 to 45% with basal inferior wall hypokinesis and RVSP of 28. There is also trace to mild mitral regurgitation. No pericardial effusion noted. Cardiac troponin has been trending flat. Transaminases trending down. AST 161 and ALT 138. Physical examination unremarkable. Patient is not complaining of shortness of breath and his chest pain is much improved and is only worse upon palpation on the left side chest area. Patient is medically optimized and stable for discharge. [facility] instruction: Patient to follow-up with PCP and truck driver flatbed within 1 to 2 weeks. New prescription for lisinopril 20 mg once daily Patient consult alcohol cessation Vital signs reviewed. General: non toxic, no distress, appears at stated age, overweight Derm: no unusual rashes/lesions, warm Head: atraumatic, normocephalic, symmetric Eyes: EOMI, no lid lag, anicteric sclera, pupils equal round reactive to light ENT: Nose and ears atraumatic Neck: No cervical lymphadenopathy, trachea midline, supple Mouth: no lip lesion, mucus membranes moist Cardiovascular: S1S2 reg, no murmur, positive dorsalis pedis pulse bilateral, no edema, left-sided chest tenderness upon palpation Lungs: CTA bilateral, no rhonchi, no rales, no accessory muscle use Abdominal: soft, nontender to palpation, no guarding Ext: muscle strength 5 out of 5 in all 4 extremities grossly, no gross muscle atrophy, no contractures, Neuro: CN II-XI grossly intact, no gross focal neuro deficits Psych: Alert, oriented, appropriate affect Dictation was produced using [email or web address] software. Please excuse any grammatical, word or spelling errors. Attestation I have seen and examined this patient with my resident , discussed the same with the resident/CHESTER, and agree with the dictator's assessment and plan as written Dr. Gerry mccray Patient Condition at Discharge: Stable Plan - Discharge Summary Discharge Rx Participant: No New Discharge Prescriptions: New lisinopriL [Zestril] 20 mg PO DAILY #30 tab Continue Multivitamins, Thera [Multivitamin (formulary)] 1 tab PO DAILY Nugenix 1 tab PO BID Discharge Medication List Multivitamins, Thera [Multivitamin (formulary)] 1 tab PO DAILY 04/15/24 [History] Nugenix 1 tab PO BID 04/15/24 [History] lisinopriL [Zestril] 20 mg PO DAILY #30 tab 04/17/24 [Rx] Follow up Appointment(s)/Referral(s): Kennedy Mosley MD [RESIDENT] - 1 Week (please call and make appointment ) None,Stated [Primary Care Provider] - 1-2 days José Ennis MD [STAFF PHYSICIAN] - 2 Weeks (office will call you ) Patient Instructions/Handouts: Chest Pain (DC) Activity/Diet/Wound Care/Special Instructions: Please follow-up with PCP and truck driver flatbed within 1 to 2 weeks. If you do not have your PCP when you can contact [facility] for internal medicine with information below: [facility] V[facility] Address: [address] [place] [id number] Discharge Disposition: TRANSFER TO SNF/ECF
== END 2024-04-17 13:36 ==
LOC: EC 12:50 → 3SCARD 15:01
PROVIDERS: ADMIT Internal Medicine; ATTEND Internal Medicine
DX: R07.89 Other chest pain (principal); R79.89 Other specified abnormal findings of blood chemistry; I34.0 Nonrheumatic mitral (valve) insufficiency; I42.9 Cardiomyopathy, unspecified; F10.20 Alcohol dependence, uncomplicated; I10 Essential (primary) hypertension; K76.0 Fatty (change of) liver, not elsewhere classified; R73.9 Hyperglycemia, unspecified; M19.90 Unspecified osteoarthritis, unspecified site; Z56.3 Stressful work schedule; M79.10 Myalgia, unspecified site; M25.512 Pain in left shoulder; M79.602 Pain in left arm; M54.2 Cervicalgia; G89.29 Other chronic pain; M54.6 Pain in thoracic spine; R20.0 Anesthesia of skin; R20.2 Paresthesia of skin; Z79.899 Other long term (current) drug therapy; Z71.41 Alcohol abuse counseling and surveillance of alcoholic; Z83.3 Family history of diabetes mellitus
CPT/HCPCS: 96374; 96375; 99285; 36415; 93005; 93306; 93351; 80061; 80053 ×3; 82150; 83690; 83735; 84484; 85025; 80306; 83036; 71046; 76705; 72125; G0378 ×3; J0360; J1885